=== PATIENT | male | born 1970 | race Caucasian/White ===

== ENCOUNTER 2016-11-12 02:29 | Emergency (ER) | payer BC, OTHER ==
[2016-11-12 02:43] VITALS: BP 164/90; PULSE 99; TEMP 98.1; BMI 27.3
[2016-11-12] MEDS ORDERED: OXYCODONE/APAP 5/325MG COMBO TABLET PO ONE ×2 (03:23→04:48)
[2016-11-12] MEDS ORDERED: IBUPROFEN 400 MG TABLET (FP) PO ONE ×2 (03:23→03:53)
[2016-11-12] MEDS ORDERED: OXYCODONE/APAP 5/325MG COMBO TABLET ONE ×2 (03:53→04:44)
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
--- NOTE | 2016-11-12 04:44 | PDOC ---
*Physical Exam - Vital Signs Last Vital Signs Temp Pulse Resp BP Pulse Ox 98.1 F 99 H 18 164/90 100 11/12/16 02:40 11/12/16 02:40 11/12/16 02:40 11/12/16 02:40 11/12/16 02:40 ED Treatment Course - Medications Given in the ED: ED Medications Discontinued Medications Generic Name Dose Route Start Last Admin Trade Name Freq PRN Reason Stop Dose Admin Ibuprofen 800 mg 11/12/16 03:23 11/12/16 03:56 Motrin - PO 11/12/16 03:24 800 mg ONCE ONE Administration Oxycodone/Acetaminophen 1 combo 11/12/16 03:23 11/12/16 03:57 Percocet 5/325 - PO 11/12/16 03:24 1 combo ONCE ONE Administration Medical Decision Making - Medical Decision Making 11/12/16 04:44 agree with care from USHA Hollis *DC/Admit/Observation/Transfer Diagnosis at time of Disposition: Right elbow pain Fall Qualifiers: Encounter type: initial encounter Qualified Code(s): W19.XXXA - Unspecified fall, initial encounter - Prescriptions Prescriptions: Ibuprofen [Motrin -] 600 mg PO Q6H PRN #20 tablet PRN Reason: Mild Pain Oxycodone HCl/Acetaminophen [Percocet 5-325 mg Tablet] 1 tab PO Q6H PRN #20 tablet MDD 4 TABS PRN Reason: Severe Pain - Referrals Referrals: Ramos Lopez MD [Staff Physician] - - Patient Instructions Printed Discharge Instructions: DI for Elbow Pain Additional Instructions: FOLLOW UP WITH DR. LOPEZ (ORTHOPEDIC) FOR FURTHER EVALUATION. CALL TO SCHEDULE APPOINTMENT. TAKE MEDICATIONS PRESCRIBED. APPLY ICE TO AFFECTED AREA EVERY 3-4 HOURS FOR 20-30 MIN NEEDED. KEEP ARM IN SLING WHILE OUT OF BED. DO NOT DRIVE, DRINK ALCOHOL, OR OPERATE HEAVY MACHINERY WHILE TAKING PERCOCET. Print Language: CUBAN - Post Discharge Activity Work/School Note: Back to Work
== END 2016-11-12 05:08 | disposition home or self-care (01) ==
LOC: JER 02:29
DX: S59.801A Other specified injuries of right elbow, initial encounter (principal); V28.4XXA Motorcycle driver injured in noncollision transport accident in traffic accident, initial encounter; Y92.488 Other paved roadways as the place of occurrence of the external cause; Y93.89 Activity, other specified; Y99.8 Other external cause status
CPT/HCPCS: 73060-TC-RT; 73070-TC-RT; 99281-25